=== PATIENT | female | born 1935 | race Caucasian/White ===

== ENCOUNTER → 2017-01-14 | Emergency (ER) | payer OTHER ==
[~2017-01-14] MED LIST: LEVO50TA66 PO; LEVO50TA7; WARF5TAB
== END | disposition left against medical advice (07) ==
LOC: ER 22:37
DX: R40.4 Transient alteration of awareness (principal); Z53.21 Procedure and treatment not carried out due to patient leaving prior to being seen by health care provider

== ENCOUNTER 2017-01-15 12:27 | Inpatient (IN) | payer OTHER ==
[~2017-01-15] VITALS: Ht 160 cm; Wt 53.2 kg
[2017-01-15 12:30] VITALS: BP 120/72
[2017-01-15] MEDS ORDERED: MORPHINE SULF INJ 2 MG/ML SYRINGE 1ML IV PRN (13:45)
[2017-01-15] MEDS ORDERED: GABAPENTIN 100 MG CAP PO ONE (13:45)
[2017-01-15] MEDS ORDERED: KETOROLAC TROMETH 30 MG/ML 1ML VIAL IV PRN (13:45)
[2017-01-15] MEDS ORDERED: NITROGLYCERIN 0.4 MG SL TAB SL PRN (13:45)
[2017-01-15] MEDS ORDERED: traMADol HCL 50 MG TAB PO PRN (13:45)
[2017-01-15 13:59] VITALS: BP 120/72
[2017-01-15 15:27] LABS: Basophils # (auto) 0 uL; Basophils % (auto) 0.3 % (0.0-2.0); Eosinophils # (auto) 0.1 uL; Eosinophils % (auto) 0.6 % (0.0-7.0); Hematocrit 46.7 % (36.0-46.0); Hemoglobin 15.5 g/dL (12.2-16.2); Lymphocytes # (auto) 0.6 uL; Mean Corpuscular Hemoglobin 33.1 pg (28.0-32.0); Mean Corpuscular Hgb Conc. 33.3 g/dL (32.0-36.0); Mean Corpuscular Volume 99.4 fL (80.0-100.0); Mean Platelet Volume 7.4 fL (7.4-10.4); Monocytes # (auto) 0.7 uL; Monocytes % (auto) 6.9 % (0.0-12.0); Neutrophils # (auto) 8.7 uL; Neutrophils % (auto) 86.2 % (37.0-80.0); Platelet Count (auto) 375 10^3/uL (140-450); Red Cell Distribution Width 14.5 % (11.6-16.0); White Blood Cell 10.1 10^3/uL (4.4-10.8)
[2017-01-15 15:30] LABS: Partial Thromboplastin Time 33.5 sec (22.64-33.71)
[2017-01-15 15:31] LABS: INR 2.32 (0.9-1.15); Prothrombin Time 25.1 sec (9.37-12.3)
[2017-01-15 15:39] LABS: Potassium 4.3 mmol/L (3.5-5.1)
[2017-01-15 15:42] LABS: BUN/Creatinine Ratio 15.3
[2017-01-15 15:44] LABS: Bilirubin, Total 0.6 mg/dL (0.2-1.0)
[2017-01-15 16:12] LABS: Urine Bilirubin Negative (Negative); Urine Blood Negative /uL (Negative); Urine Color Yellow (Yellow); Urine Glucose Normal (Normal); Urine Ketone Negative (Negative); Urine Nitrite Negative (Negative); Urine RBC <1 /hpf (0 - 4); Urine Squamous Epithelial Cell FEW /hpf (<5); Urine Urobilinogen Normal (Negative)
[2017-01-15 16:36] VITALS: BP 120/76
[2017-01-15] MEDS ORDERED: DOCUSATE SOD 100 MG CAP PO SCH (22:00)
[2017-01-15] MEDS ORDERED: GABAPENTIN 100 MG CAP PO SCH (22:00)
[2017-01-16] MEDS ORDERED: LEVOTHYROXINE SODIUM 50 MCG TAB PO SCH (07:00)
[2017-01-16] MEDS ORDERED: PANTOPRAZOLE 40 MG TAB PO SCH (10:00)
== END 2017-01-15 18:20 | disposition left against medical advice (07) | DRG 300 ==
LOC: WEST WING 12:27
PROVIDERS: ADMIT Internal Medicine; ATTEND Internal Medicine
DX: I73.9 Peripheral vascular disease, unspecified (principal); I50.32 Chronic diastolic (congestive) heart failure; E03.9 Hypothyroidism, unspecified; I48.91 Unspecified atrial fibrillation; Z53.21 Procedure and treatment not carried out due to patient leaving prior to being seen by health care provider; I35.0 Nonrheumatic aortic (valve) stenosis; J44.9 Chronic obstructive pulmonary disease, unspecified; Z87.891 Personal history of nicotine dependence; Z86.73 Personal history of transient ischemic attack (TIA), and cerebral infarction without residual deficits; Z79.01 Long term (current) use of anticoagulants
CPT/HCPCS: 36415; 71010; 80053; 81001; 84443; 84484; 85025; 85610; 85652; 85730; 93930

== ENCOUNTER 2017-05-22 10:10 | Emergency (ER) | payer MEDICARE, OTHER ==
[2017-05-22] MEDS ORDERED: SODIUM CHLORIDE 0.9% 250 ML IV ONE (11:07)
[2017-05-22] MEDS ORDERED: ALBUTEROL SULF 2.5 MG/0.5ML(0.5%) NEB SOLN NEB ONE ×2 (11:15→11:30)
[2017-05-22] MEDS ORDERED: IPRATROPIUM BROM 0.5 MG/2.5ML INH SOL NEB ONE (11:15)
[2017-05-22 13:19] LABS: Basophils # (auto) 0 uL; Basophils % (auto) 0.2 % (0.0-2.0); Eosinophils # (auto) 0 uL; Eosinophils % (auto) 0.2 % (0.0-7.0); Hematocrit 52.1 % (36.0-46.0); Hemoglobin 17.3 g/dL (12.2-16.2); Lymphocytes # (auto) 0.2 uL; Lymphocytes % (auto) 1.6 % (10.0-50.0); Mean Corpuscular Hemoglobin 34.3 pg (28.0-32.0); Mean Corpuscular Hgb Conc. 33.1 g/dL (32.0-36.0); Mean Corpuscular Volume 103.4 fL (80.0-100.0); Mean Platelet Volume 7.4 fL (6.9-10.8); Monocytes # (auto) 0.8 uL; Monocytes % (auto) 6.6 % (0.0-12.0); Neutrophils # (auto) 11.2 uL; Neutrophils % (auto) 91.4 % (37.0-80.0); Platelet Count (auto) 313 10^3/uL (140-450); Red Cell Distribution Width 14.9 % (11.8-14.3); White Blood Cell 12.3 10^3/uL (4.4-10.8)
[2017-05-22 13:38] LABS: Albumin 2.9 g/dL (3.4-5.0); BUN/Creatinine Ratio 32.7; Bilirubin, Total 0.4 mg/dL (0.2-1.0); Calcium 8.4 mg/dL (8.5-10.1); Magnesium 2.3 mg/dL (1.6-2.6); Total Protein 6.5 g/dL (6.4-8.2)
[2017-05-22] MEDS ORDERED: FUROSEMIDE 20 MG TAB PO ONE (13:45)
[2017-05-22 13:46] LABS: Potassium 5.9 mmol/L (3.5-5.1)
[2017-05-22] MEDS ORDERED: FUROSEMIDE 40 MG/4 ML VIAL ONE (13:56)
[2017-05-22] MEDS ORDERED: FUROSEMIDE 40 MG/4 ML VIAL IV ONE (14:15)
[2017-05-22 16:54] LABS: Urine Bilirubin Negative (Negative); Urine Blood Negative /uL (Negative); Urine Color Yellow (Yellow); Urine Glucose Normal (Normal); Urine Hyaline Cast FEW /lpf (0 - 2); Urine Ketone Negative (Negative); Urine Nitrite Negative (Negative); Urine RBC <1 /hpf (0 - 4); Urine Squamous Epithelial Cell FEW /hpf (<5); Urine Urobilinogen Normal (Negative); Urine pH 5.5 (5.0-8.0)
[2017-05-22 17:22] VITALS: BP 104/68
== END 2017-05-22 17:56 | disposition home or self-care (01) ==
LOC: ER 10:10
DX: R09.89 Other specified symptoms and signs involving the circulatory and respiratory systems (principal); E87.5 Hyperkalemia; E44.0 Moderate protein-calorie malnutrition; I48.91 Unspecified atrial fibrillation; I50.9 Heart failure, unspecified; J44.9 Chronic obstructive pulmonary disease, unspecified; E07.9 Disorder of thyroid, unspecified; Z90.710 Acquired absence of both cervix and uterus
CPT/HCPCS: 36415; 71010; 80053; 81001; 83605; 83735; 85025; 87040; 94640; 94761; 96374; 99285; J1940